=== PATIENT | male | born 1960 | race Caucasian/White ===

== ENCOUNTER 2016-09-08 03:28 | Emergency (ER) | payer OTHER ==
[~2016-09-08] VITALS: Ht 185.4 cm; Wt 108.9 kg
[~2016-09-08 03:28] MED LIST: TRAMADOL50 MG PO
[2016-09-08 04:20] LABS: ABSOLUTE BASOPHIL COUNT 0 /CUMM (0.0-0.2); ABSOLUTE EOSINOPHIL COUNT 0.2 /CUMM (0.0-0.7); ABSOLUTE GRANULOCYTE CT 6.2 /CUMM (1.4-6.5); ABSOLUTE LYMPH COUNT 1.3 /CUMM (1.2-3.4); ABSOLUTE MONOCYTE COUNT 0.5 /CUMM (0.10-0.60); BASOPHIL % 0.2 % (0.0-2.0); EOSINOPHIL % 2.1 % (0-5); GRANULOCYTE % 75.7 % (42.2-75.2); HEMATOCRIT 46.3 % (42-52); MEAN CORPUSCULAR HGB 32.2 PG (27.0-31.0); MEAN CORPUSCULAR HGB CONC 33.7 G/DL (33.0-37.0); MEAN CORPUSCULAR VOLUME 95.5 FL (80.0-94.0); MEAN PLATELET VOLUME 8.1 FL (7.4-10.4); PLATELET COUNT 250 /CUMM (130-400); RBC DISTRIBUTION WIDTH 12.9 % (11.5-14.5); RED BLOOD CELL CT 4.86 /CUMM (4.70-6.10); WHITE BLOOD CELL COUNT 8.2 /CUMM (4.8-10.8)
--- NOTE | 2016-09-08 04:37 | ED GI/GU/ABDOMINAL COMPLAINT ---
History of Present Illness General Chief Complaint: Abdominal Pain/Flank Pain Stated Complaint: ABD PAIN X'S 4 DAYS NOW GETTING WORSE PER PT Source: patient, old records Exam Limitations: no limitations Vital Signs & Intake/Output Vital Signs & Intake/Output Vital Signs Date Time Temp Pulse Resp B/P Pulse O2 O2 Flow FiO2 Ox Delivery Rate 09/08 0336 97.7 60 16 167/59 99 Room Air Allergies Coded Allergies: No Known Allergies (09/08/16) Reconcile Medications TRAMADOL HCL (Tramadol) 50 MG TAB 1-2 TAB PO Q6P PRN PAIN Triage Note: PT TO ED COMPLAINING OF DIFFUSE ABD PAIN SINCE SUNDAY, WORSE TONIGHT. DENIES CP/SOB. +N/-V/-D. DENIES FEVERS. LBM YESTERDAY AND NORMAL PER PT. DENIES URINARY SYMPTOMS. "FEEL BLOATED." Triage Nurses Notes Reviewed? yes Onset: 3 days Duration: day(s):, constant, continues in ED, getting worse Timing: recent history Quality/Severity: aching, fullness, moderate Location: left lower quadrant, right lower quadrant Radiation: no radiation Activities at Onset: none Prior Abdominal Problems: similar symptoms Past Sexual History: Unobtainable at this time Modifying Factors: Worsens With: palpation. Associated Symptoms: abdominal pain, nausea/vomiting HPI: 3 days prior to admission patient complains of bilateral lower quadrant pain moderate to severe increasing severity constant associated with bloating nausea.. Similar symptoms 2 years ago. He denies fever chills vomiting diarrhea chest pain cough shortness of breath headache dysuria rash bleeding. Past History Travel History Traveled to [place] past 21 day No Medical History Any Pertinent Medical History? see below for history Neurological: NONE EENT: NONE Cardiovascular: hyperlipidemia Respiratory: NONE Gastrointestinal: NONE Hepatic: NONE Renal: NONE Musculoskeletal: NONE Psychiatric: NONE Endocrine: NONE Blood Disorders: NONE Cancer(s): NONE Surgical History Surgical History: non-contributory Psychosocial History What is your primary language Slovenian Tobacco Use: Never used ETOH Use: occasional use Illicit Drug Use: denies illicit drug use Family History Hx Contributory? No Review of Systems Review of Systems Constitutional: Reports: no symptoms. EENTM: Reports: no symptoms. Respiratory: Reports: no symptoms. Cardiovascular: Reports: no symptoms. GI: Reports: see HPI, abdominal pain, bloating. Genitourinary: Reports: no symptoms. Musculoskeletal: Reports: no symptoms. Skin: Reports: no symptoms. Neurological/Psychological: Reports: no symptoms. Hematologic/Endocrine: Reports: no symptoms. Immunologic/Allergic: Reports: no symptoms. All Other Systems: Reviewed and Negative Physical Exam Physical Exam General Appearance: well developed/nourished, alert, awake, anxious, mild distress Head: atraumatic, normal appearance Eyes: Bilateral: normal appearance, PERRL, EOMI, normal inspection. Ears, Nose, Throat, Mouth: hearing grossly normal, moist mucous membrane Neck: normal inspection, supple, full range of motion, normal alignment Respiratory: normal breath sounds, chest non-tender, no respiratory distress, quiet respiration, lungs clear Cardiovascular: regular rate/rhythm, normal peripheral pulses, norml femoral pulses equa Peripheral Pulses: 4+ carotid (R), 4+ carotid (L) Gastrointestinal: normal bowel sounds, soft, non-tender, no organomegaly Male Genitals: normal genitalia Back: normal inspection, normal range of motion Extremities: normal range of motion, no ligament instability Neurologic/Psych: no motor/sensory deficits, awake, alert, oriented x 3, normal gait, normal mood/affect, 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 No Severe Sepsis Present: No Septic Shock Present: No Progress Differential Diagnosis: appendicitis, biliary colic, bowel obstruction, diverticulitis, UTI/pyelo Plan of Care: Orders Procedure Date/time Status URINALYSIS 09/08 352 Complete TROPONIN LEVEL 09/08 352 Complete LIPASE 09/08 352 Complete COMPREHENSIVE METABOLIC PANEL 09/08 352 Complete CBC WITHOUT DIFFERENTIAL 09/08 352 Complete EKG 09/08 352 Active Laboratory Tests 09/08/16 0439: Urine Color YEL, Urine Clarity CLEAR, Urine pH 7.0, Ur Specific [place] 1.020, Urine Protein TRACE H, Urine Ketones NEG, Urine Nitrite NEG, Urine Bilirubin NEG, Urine Urobilinogen 0.2, Ur Leukocyte Esterase NEG, Ur Microscopic SEDIMENT EXAMINED, Urine RBC RARE, Urine WBC RARE, Urine Bacteria FEW H, Urine Hemoglobin NEG, Urine Glucose NEG 09/08/16 0412: Anion Gap 7, Estimated GFR > 60, BUN/Creatinine Ratio 15.0, Glucose 110 H, Calcium 9.7, Total Bilirubin 1.9 H, AST 29, ALT 54, Alkaline Phosphatase 64, Troponin I < 0.01, Total Protein 6.8, Albumin 4.3, Globulin 2.5, Albumin/ Globulin Ratio 1.7, Lipase 25, CBC w Diff NO MAN DIFF REQ, RBC 4.86, MCV 95.5 H , MCH 32.2 H, RDW 12.9, MPV 8.1, Gran % 75.7 H, Lymphocytes % 16.1 L, Monocytes % 5.9, Eosinophils % 2.1, Basophils % 0.2, Absolute Granulocytes 6.2, Absolute Lymphocytes 1.3, Absolute Monocytes 0.5, Absolute Eosinophils 0.2, Absolute Basophils 0, PUBS MCHC 33.7 Diagnostic Imaging: Viewed by Me: CT Scan. Discussed w/RAD: CT Scan. Radiology Impression: No significant abnormality. Initial ED EKG: normal axis, normal intervals, normal p-waves, normal QRS complex, normal sinus rhythm, nonspecific ST T wave chg Rhythm Strip: normal sinus rhythm Departure Departure Time of Disposition: 536 Disposition: HOME OR SELF CARE Condition: Stable Clinical Impression Primary Impression: Abdominal pain in male Referrals: JANNY IRIZARRY,MALIKA Walker (PCP/Family) Departure Forms: Customer Survey General Discharge Information Prescriptions: Current Visit Scripts Hyoscyamine Sulfate (Levsin-Sl) 1-2 TAB SL Q4P PRN abd pain #30 TAB Ibuprofen 1 TAB PO Q6PRN PRN pain #50 TAB Polyethylene Glycol 3350 (Miralax) 17 GM PO DAILY PRN constipation #527 GM mix with water, juice, soda, coffee or tea use until stools soft and regular
--- NOTE | 2016-09-08 05:26 | CT SCAN REPORT ---
EXAMINATION: CT ABDOMEN AND PELVIS WITH CONTRAST CLINICAL INFORMATION: Lower abdominal pain. Bloating. History of 3.4 cm abdominal aortic aneurysm. Concern for diverticulitis. COMPARISON: CT scan abdomen pelvis 06/05/2014 TECHNIQUE: Multidetector volumetric imaging was performed of the abdomen and pelvis after the IV administration of 93 mL of Optiray 320 intravenous contrast. Sagittal and coronal reformatted images were obtained on the technologist's workstation. DLP: 828.9 mGy-cm FINDINGS: LUNG BASES: The visualized lung bases are unremarkable. LIVER, GALLBLADDER, AND BILIARY TREE: The liver is normal in size, shape, and attenuation. No focal hepatic lesion or biliary ductal dilatation is present. The gallbladder is unremarkable with no evidence of radiopaque gallstones, gallbladder wall thickening, or obvious pericholecystic inflammatory changes. PANCREAS: Unremarkable. SPLEEN: Unremarkable. ADRENAL GLANDS: Unremarkable. KIDNEYS AND URETERS: The kidneys are normal in size, shape, and attenuation. No hydronephrosis, hydroureter, or calculi seen. No perinephric stranding. BLADDER: Unremarkable. GASTROINTESTINAL TRACT: No acute change of the bowel. No diverticula of the bowel. No bowel wall thickening or edema. No bowel obstruction. Moderate volume of stool in colon. The appendix is normal. The small bowel loops are normal. ABDOMINAL WALL: No significant hernia is appreciated. LYMPH NODES: Normal. VASCULAR: Aneurysm of the distal aorta proximal to bifurcation measuring 3.2 cm transverse. Atherosclerotic vascular calcifications of the wall of aorta and iliac vessels. PELVIC VISCERA: Unremarkable. OSSEOUS STRUCTURES: Multilevel degenerative change of the spine. Vacuum disc phenomena L4-L5 L5-S1. There is a grade 1 anterolisthesis of L5 relative to L4 and S1 due to facet joint arthrosis. There is also bilateral pars defect at L5. IMPRESSION: No significant abnormality.
[2016-09-08] MEDS ORDERED: LEVSIN-SL0.125 MG SL (05:39)
[2016-09-08] MEDS ORDERED: MIRALAX119 GM PO (05:39)
[2016-09-08] MEDS ORDERED: IBUPROFEN800 M1 PO (05:39)
[2016-09-08 05:56] VITALS: BP 158/74
== END 2016-09-08 05:59 ==
LOC: ERH 03:28
PROVIDERS: Emergency Medicine
DX: R10.31 Right lower quadrant pain (principal); R10.32 Left lower quadrant pain
CPT/HCPCS: 74177; 81001; 93005; 93010; 96374; 96375; J0131; J1885; J2405